=== PATIENT | female | born 1955 | race Native Hawaiian/Other Pacific Islander ===

== ENCOUNTER 2017-05-13 19:00 | Emergency (ER) | payer OTHER ==
[2017-05-13] MEDS ORDERED: TYLENOL PO ONE (19:20)
[2017-05-13] MEDS ORDERED: ASPIRIN PO ONE (19:34)
[2017-05-13] MEDS ORDERED: TYLENOL ONE (19:42)
[2017-05-13 19:52] LABS: Basophils # (Auto) 0.1 K/mm3 (0.0-0.1); Basophils % (Auto) 1.1 % (0.0-1.8); Eosinophils % (Auto) 0.9 % (0.0-4.3); Hematocrit 43.6 % (30.3-42.9); Hemoglobin 14.3 gm/dl (10.1-14.3); Lymphocytes # (Auto) 2.2 K/mm3 (1.2-5.4); Lymphocytes % (Auto) 41.8 % (13.4-35.0); Mean Corpuscular HGB Conc 33 % (30-34); Mean Corpuscular Hemoglobin 28 pg (28-32); Mean Corpuscular Volume 86 fl (79-97); Monocytes # (Auto) 0.7 K/mm3 (0.0-0.8); Platelet Count 246 K/mm3 (140-440); Red Blood Count 5.07 M/mm3 (3.65-5.03); Red Cell Distribution Width 14.8 % (13.2-15.2)
[2017-05-13 20:11] LABS: BUN/Creatinine Ratio 7; Blood Urea Nitrogen 5 mg/dL (7-17); Calcium 8.6 mg/dL (8.4-10.2); Hemolysis Index 31
--- NOTE | 2017-05-13 20:48 | XRay Report ---
FINAL REPORT PROCEDURE: XR CHEST ROUTINE 2V TECHNIQUE: PA and lateral chest radiographs were obtained. CPT 44217 HISTORY: COUGH COMPARISON: No prior studies are available for comparison. FINDINGS: Heart: Normal. Mediastinum/Vessels: Normal. Lungs/Pleural space: No infiltrate, effusion, or pneumothorax. Bony thorax: No acute osseous abnormality. Other: IMPRESSION: No pulmonary infiltrates are identified.
[2017-05-13] MEDS ORDERED: NACL 0.9% 1000 ML 1,000 ML IV ONE (22:51)
[2017-05-13] MEDS ORDERED: TORADOL IV ONE (22:51)
--- NOTE | 2017-05-13 23:44 | Emergency Department Report ---
ED Fever HPI - General Chief Complaint: Chest Pain Stated Complaint: CHEST PAIN Time Seen by Provider: 05/13/17 22:30 Source: patient Exam Limitations: language barrier - History of Present Illness Initial Comments: 61-year-old female Ghanaian speaking with a past smoking history hypertension and thyroid disease presents to Hospital with complaints of chest pain and fever. Complaint #1: Chest pain Patient has had right-sided chest pain and smelly for the past 2 weeks. It is described as a sticking pain radiates to her posterior thorax. No aggravating or alleviating factors reported. Patient states that she had some mild shortness of breath or dizziness with pain. No complaints of calf tenderness, recent travel, PE or DVT. Pain rated as 7/10 in intensity Complaint #2: Fever Patient's had a fever for the past 4 days with a nonproductive cough. She did not receive a flu shot. No sick contacts reported. Denies nausea, vomiting, or diarrhea. ED Review of Systems ROS: Stated complaint: CHEST PAIN Other details as noted in HPI Comment: All other systems reviewed and negative Other: Constitutional: As per HPI, decrease appetite Eyes: No eye pain visual changes or discharge ENT: No ear pain or throat pain Neck: Denies pain Respiratory: As per HPI Cardiovascular: Denies palpitations, syncope GI: Denies abdominal pain, nausea, vomiting, diarrhea : Denies dysuria, Musculoskeletal: Denies back pain, joint swelling Skin: Denies rash, lesions, erythema Neurologic: Denies headache, numbness, weakness Psychiatric: Denies suicidal ideation, hallucinations ED Past Medical Hx - Past Medical History Previous Medical History?: Yes Hx Hypertension: Yes Additional medical history: thyroid disease - Surgical History Past Surgical History?: Yes Additional Surgical History: hysterectomy - Social History Smoking Status: Never Smoker Substance Use Type: None - Medications Home Medications: Home Medications Medication Instructions Recorded Confirmed Last Taken Type Levothyroxine [Synthroid] 25 mcg PO DAILY@0600 #30 tablet 02/09/16 Unknown Rx Famotidine [Pepcid] 40 mg PO QHS #30 tablet 02/15/16 Unknown Rx Benzonatate [Tessalon Perles] 100 mg PO Q8HR PRN #30 capsule 05/14/17 Unknown Rx Ibuprofen [Motrin] 600 mg PO Q8H PRN #30 tablet 05/14/17 Unknown Rx Oseltamivir [Tamiflu] 75 mg PO BID #10 cap 05/14/17 Unknown Rx traMADol [Ultram 50 MG tab] 50 mg PO Q6HR PRN #20 tablet 05/14/17 Unknown Rx ED Physical Exam - General Limitations: No Limitations - Other Other exam information: General: No limitations, patient is alert in no acute distress Head exam: Atraumatic, normocephalic Eyes exam: Normal appearance ENT: Moist mucous membrane, normal oropharynx, no exudate Neck exam: Normal inspection, full range of motion, no meningismus nontender Respiratory exam: Clear to auscultation bilateral, no wheezes, rales, crackles Cardiovascular: Normal rate and rhythm, normal heart sounds Abdomen: Soft, nondistended, and nontender, with normal bowel sounds, no rebound, or guarding Extremity: Full range of motion normal inspection no deformity, no calf tenderness or edema Back: Normal Inspection, full range of motion, no tenderness Neurologic: Alert, oriented x3, cranial nerves intact, no motor or sensory deficit Psychiatric: normal affect, normal mood Skin: Warm, dry, intact ED Course Vital Signs 05/13/17 05/13/17 05/13/17 19:25 20:25 22:34 Temperature 102.1 F H Pulse Rate 106 H 70 Respiratory 18 18 10 L Rate Blood Pressure 136/95 Blood Pressure [Left] O2 Sat by Pulse 96 98 Oximetry 05/13/17 05/13/17 05/13/17 22:41 22:42 22:46 Temperature 98.1 F Pulse Rate 79 67 Respiratory 14 14 14 Rate Blood Pressure 107/66 Blood Pressure 109/60 [Left] O2 Sat by Pulse 97 97 98 Oximetry 05/13/17 05/13/17 05/13/17 23:16 23:30 23:46 Temperature Pulse Rate 70 67 61 Respiratory 14 11 L 9 L Rate Blood Pressure 107/66 127/51 110/52 Blood Pressure [Left] O2 Sat by Pulse 99 99 100 Oximetry ED Medical Decision Making - Lab Data Result diagrams: 05/13/17 19:39 05/13/17 19:39 Lab Results 05/13/17 05/13/17 05/13/17 Range/Units 19:39 19:39 22:50 WBC 5.3 (4.5-11.0) K/mm3 RBC 5.07 H (3.65-5.03) M/mm3 Hgb 14.3 (10.1-14.3) gm/dl Hct 43.6 H (30.3-42.9) % MCV 86 (79-97) fl MCH 28 (28-32) pg MCHC 33 (30-34) % RDW 14.8 (13.2-15.2) % Plt Count 246 (140-440) K/mm3 Lymph % (Auto) 41.8 H (13.4-35.0) % [place] % (Auto) 13.0 H (0.0-7.3) % Eos % (Auto) 0.9 (0.0-4.3) % Baso % (Auto) 1.1 (0.0-1.8) % Lymph # 2.2 (1.2-5.4) K/mm3 [place] # 0.7 (0.0-0.8) K/mm3 Eos # 0.0 (0.0-0.4) K/mm3 Baso # 0.1 (0.0-0.1) K/mm3 Seg Neutrophils % 43.2 (40.0-70.0) % Seg Neutrophils # 2.3 (1.8-7.7) K/mm3 D-Dimer (0-234) ng/mlDDU Sodium 138 (137-145) mmol/L Potassium 4.1 (3.6-5.0) mmol/L Chloride 98.4 (98-107) mmol/L Carbon Dioxide 24 (22-30) mmol/L Anion Gap 20 mmol/L BUN 5 L (7-17) mg/dL Creatinine 0.7 (0.7-1.2) mg/dL Estimated GFR > 60 ml/min BUN/Creatinine Ratio 7 % Glucose 137 H (65-100) mg/dL Calcium 8.6 (8.4-10.2) mg/dL Troponin T < 0.010 < 0.010 (0.00-0.029) ng/mL Urine Color (Yellow) Urine Turbidity (Clear) Urine pH (5.0-7.0) Ur Specific [place] (1.003-1.030) Urine Protein (Negative) mg/dL Urine Glucose (UA) (Negative) mg/dL Urine Ketones (Negative) mg/dL Urine Blood (Negative) Urine Nitrite (Negative) Urine Bilirubin (Negative) Urine Urobilinogen (<2.0) mg/dL Ur Leukocyte Esterase (Negative) Urine WBC (Auto) (0.0-6.0) /HPF Urine RBC (Auto) (0.0-6.0) /HPF U Epithel Cells (Auto) (0-13.0) /HPF Urine Bacteria (Auto) (Negative) /HPF Urine Mucus /HPF Influenza A (Rapid) (Negative) Influenza B (Rapid) (Negative) 05/13/17 05/13/17 05/13/17 Range/Units 22:53 Unknown Unknown WBC (4.5-11.0) K/mm3 RBC (3.65-5.03) M/mm3 Hgb (10.1-14.3) gm/dl Hct (30.3-42.9) % MCV (79-97) fl MCH (28-32) pg MCHC (30-34) % RDW (13.2-15.2) % Plt Count (140-440) K/mm3 Lymph % (Auto) (13.4-35.0) % [place] % (Auto) (0.0-7.3) % Eos % (Auto) (0.0-4.3) % Baso % (Auto) (0.0-1.8) % Lymph # (1.2-5.4) K/mm3 [place] # (0.0-0.8) K/mm3 Eos # (0.0-0.4) K/mm3 Baso # (0.0-0.1) K/mm3 Seg Neutrophils % (40.0-70.0) % Seg Neutrophils # (1.8-7.7) K/mm3 D-Dimer 244.93 H (0-234) ng/mlDDU Sodium (137-145) mmol/L Potassium (3.6-5.0) mmol/L Chloride (98-107) mmol/L Carbon Dioxide (22-30) mmol/L Anion Gap mmol/L BUN (7-17) mg/dL Creatinine (0.7-1.2) mg/dL Estimated GFR ml/min BUN/Creatinine Ratio % Glucose (65-100) mg/dL Calcium (8.4-10.2) mg/dL Troponin T (0.00-0.029) ng/mL Urine Color Yellow (Yellow) Urine Turbidity Clear (Clear) Urine pH 6.0 (5.0-7.0) Ur Specific [place] 1.008 (1.003-1.030) Urine Protein <15 mg/dl (Negative) mg/dL Urine Glucose (UA) Neg (Negative) mg/dL Urine Ketones Neg (Negative) mg/dL Urine Blood Sm (Negative) Urine Nitrite Neg (Negative) Urine Bilirubin Neg (Negative) Urine Urobilinogen < 2.0 (<2.0) mg/dL Ur Leukocyte Esterase Mod (Negative) Urine WBC (Auto) 5.0 (0.0-6.0) /HPF Urine RBC (Auto) 1.0 (0.0-6.0) /HPF U Epithel Cells (Auto) 2.0 (0-13.0) /HPF Urine Bacteria (Auto) 1+ (Negative) /HPF Urine Mucus Few /HPF Influenza A (Rapid) Negative (Negative) Influenza B (Rapid) Positive A (Negative) 05/14/17 Range/Units 01:19 WBC (4.5-11.0) K/mm3 RBC (3.65-5.03) M/mm3 Hgb (10.1-14.3) gm/dl Hct (30.3-42.9) % MCV (79-97) fl MCH (28-32) pg MCHC (30-34) % RDW (13.2-15.2) % Plt Count (140-440) K/mm3 Lymph % (Auto) (13.4-35.0) % [place] % (Auto) (0.0-7.3) % Eos % (Auto) (0.0-4.3) % Baso % (Auto) (0.0-1.8) % Lymph # (1.2-5.4) K/mm3 [place] # (0.0-0.8) K/mm3 Eos # (0.0-0.4) K/mm3 Baso # (0.0-0.1) K/mm3 Seg Neutrophils % (40.0-70.0) % Seg Neutrophils # (1.8-7.7) K/mm3 D-Dimer (0-234) ng/mlDDU Sodium (137-145) mmol/L Potassium (3.6-5.0) mmol/L Chloride (98-107) mmol/L Carbon Dioxide (22-30) mmol/L Anion Gap mmol/L BUN (7-17) mg/dL Creatinine (0.7-1.2) mg/dL Estimated GFR ml/min BUN/Creatinine Ratio % Glucose (65-100) mg/dL Calcium (8.4-10.2) mg/dL Troponin T < 0.010 (0.00-0.029) ng/mL Urine Color (Yellow) Urine Turbidity (Clear) Urine pH (5.0-7.0) Ur Specific [place] (1.003-1.030) Urine Protein (Negative) mg/dL Urine Glucose (UA) (Negative) mg/dL Urine Ketones (Negative) mg/dL Urine Blood (Negative) Urine Nitrite (Negative) Urine Bilirubin (Negative) Urine Urobilinogen (<2.0) mg/dL Ur Leukocyte Esterase (Negative) Urine WBC (Auto) (0.0-6.0) /HPF Urine RBC (Auto) (0.0-6.0) /HPF U Epithel Cells (Auto) (0-13.0) /HPF Urine Bacteria (Auto) (Negative) /HPF Urine Mucus /HPF Influenza A (Rapid) (Negative) Influenza B (Rapid) (Negative) - EKG Data -: EKG Interpreted by Ca EKG shows normal: sinus rhythm, axis (-68), QRS complexes (90), ST-T waves (no stemi/t inv) Rate: normal (92) - EKG Data 05/13/17 23:46 Repeat EKG does not reveal any acute changes. Decrease in heart rate likely secondary to fever reduction - Radiology Data Radiology results: report reviewed Chest x-ray: No pulmonary infiltrate CT angiogram chest: No pulmonary embolus. Mild bronchitis which may be acute or chronic. No acute infiltrates or effusion - Medical Decision Making Fever and cough Symptoms improved ED treatment Influenza be positive. Tamiflu will be offered Symptomatic treatment No infiltrate/pneumonia Right-sided chest pain for 2 weeks radiating to the back Mild d-dimer elevated CT angiogram negative for pulmonary embolus EKG normal sinus without ST elevation [place] and patient has 3 negative sets of cardiac enzymes Pain medicine will be provide for symptomatic treatment Patient be discharged with outpatient follow-up - Differential Diagnosis viral syndrome, influenza, atypical chest pain, PE, [place] Critical Care Time: No Critical care attestation.: If time is entered above; I have spent that time in minutes in the direct care of this critically ill patient, excluding procedure time. ED Disposition Clinical Impression: Influenza B, Right-sided chest pain Disposition: TO HOME OR SELFCARE Is pt being admited?: No Does the pt Need Aspirin: No Condition: Stable Instructions: Chest Pain (ED), Influenza (ED) Additional Instructions: Take the medication as prescribed. Follow-up with your doctor. Return if symptoms worsen as indicated by your discharge instructions. Prescriptions: Benzonatate [Tessalon Perles] 100 mg PO Q8HR PRN #30 capsule PRN Reason: Cough Ibuprofen [Motrin] 600 mg PO Q8H PRN #30 tablet PRN Reason: Pain Oseltamivir [Tamiflu] 75 mg PO BID #10 cap traMADol [Ultram 50 MG tab] 50 mg PO Q6HR PRN #20 tablet PRN Reason: Pain Referrals: SCOTT PARK MD [Primary Care Provider] - 3-5 Days Time of Disposition: 02:32 Print Language: SLOVAK
[2017-05-13] MEDS ORDERED: NACL ONE (23:49)
[2017-05-14 00:13] LABS: Bacteria,Urine 1+ /HPF (Negative); Bilirubin,Urine NEG (Negative); Blood,Urine SM (Negative); Color,Urine Yellow (Yellow); Mucus,Urine FEW /HPF; Nitrite,Urine NEG (Negative); Protein,Urine <15 mg/dL mg/dL (Negative); Urobilinogen,Urine < 2.0 mg/dL (<2.0)
--- NOTE | 2017-05-14 00:53 | Cat Scan Report ---
FINAL REPORT EXAM: CT ANGIO CHEST HISTORY: cp, cough, fever COMPARISON: Chest x-ray from May 13, 2017.. TECHNIQUE: Contiguous axial images were obtained. Additional sagittal and coronal reformatted images were obtained. Administration of IV contrast given per institution protocol. Images submitted for interpretation. 100 cc Omnipaque 350. Max intensity projection images. FINDINGS: Heart upper limits of normal in size. Thoracic aorta normal in caliber. No dissection. Ascending thoracic aorta measures 3.1 centimeters in diameter. Main pulmonary arteries measure up to 2.2 centimeters in diameter within normal limits. No pulmonary embolus. No pathologically enlarged intrathoracic or axillary lymph nodes. Mild bronchial wall thickening concerning for bronchitis which may be acute or chronic. Mild linear atelectasis or scarring at the lung bases. No large airspace consolidation or pleural effusion. Tracheobronchial tree is patent. Mild degenerative changes of the thoracic spine. Right thyroid lobe is larger in size compared to the left. No definable nodule by CT. Borderline enlargement of the visualized liver. IMPRESSION: No pulmonary embolus. Mild bronchitis which may be acute or chronic. No acute infiltrates or effusions.
[2017-05-14 03:32] VITALS: BP 107/66
== END 2017-05-14 03:32 | disposition home or self-care (01) ==
LOC: ED 19:00
DX: J10.1 Influenza due to other identified influenza virus with other respiratory manifestations (principal); R07.89 Other chest pain; I10 Essential (primary) hypertension; E07.9 Disorder of thyroid, unspecified; Z90.710 Acquired absence of both cervix and uterus
CPT/HCPCS: 36415; 71046; 71275; 80048; 81001; 84484; 85025; 85379; 87400; 93005; 93010; 96361; 96374; 99284; J1885; J7030; Q9967

== ENCOUNTER 2018-05-06 14:47 | Emergency (ER) | payer OTHER ==
--- NOTE | 2018-05-06 15:02 | Emergency Department Report ---
Blank Doc - Documentation Documentation: 62 y o female presents with tingling and numbness x thursday, went to MD was given prescription, symptoms unresolved went jenny to ED was sent here to be evaluated PMH of HTN,Thyroid and cholesterol. stable, no neuro deficit labs/ct head reevaluate
[2018-05-06 15:03] VITALS: BP 135/57
[2018-05-06 15:43] LABS: Hematocrit 40.3 % (30.3-42.9); Mean Corpuscular HGB Conc 32 % (30-34); Mean Corpuscular Volume 87 fl (79-97); Platelet Count 223 K/mm3 (140-440); Red Blood Count 4.62 M/mm3 (3.65-5.03); Red Cell Distribution Width 14.5 % (13.2-15.2)
[2018-05-06 15:53] LABS: Creatine Kinase MB 2.5 ng/mL (0.0-4.0)
[2018-05-06 15:54] LABS: BUN/Creatinine Ratio 19; Blood Urea Nitrogen 13 mg/dL (7-17); Hemolysis Index 12
[2018-05-06 16:13] LABS: INR 0.93 (0.87-1.13)
[2018-05-06 16:14] LABS: Partial Thromboplastin Time 29.2 Sec. (24.2-36.6); Thrombin Time 16.1 Sec. (15.1-19.6)
[2018-05-06 16:54] LABS: Basophils % (Manual) 0 % (0.0-1.8); Total Cells Counted 100
[2018-05-06 16:56] LABS: Ovalocytes Few
[2018-05-06] MEDS ORDERED: REGLAN IV ONE (16:57)
[2018-05-06] MEDS ORDERED: NACL 0.9% 1000 ML 1,000 ML IV ONE (16:57)
[2018-05-06] MEDS ORDERED: BENADRYL IV ONE (16:57)
[2018-05-06] MEDS ORDERED: K-DUR PO ONE (16:58)
--- NOTE | 2018-05-06 17:04 | Emergency Department Report ---
ED General Adult HPI - General Chief complaint: Neuro Symptoms/Deficit Stated complaint: NUMBNESS/TINGLING/FACE Time Seen by Provider: 05/06/18 14:57 Source: patient Mode of arrival: Ambulatory Limitations: Language Barrier (director of operations home health, Yakelin, used at bedside) - History of Present Illness Initial comments: 62-year-old female presents to the ED with headache, burning sensation to face, cramping pain/numbness/tingling all over her body 3 days. Patient denies fever, nausea, vomiting, abdominal pain. Patient states is given prescription for her headache medication by her PCP 3 days ago. Patient does not know the name of the medication, however she states it is not helping. -: days(s) (3) Location: head, face, chest, back, left, right, upper extremity, lower extremity Severity scale (0 -10): 9 Quality: burning, other (crampy) Consistency: constant Improves with: none Worsens with: none Associated Symptoms: headaches. denies: chest pain, cough, fever/chills, nausea/vomiting, shortness of breath Treatments Prior to Arrival: other ("headache medicine") - Related Data Home Medications Medication Instructions Recorded Confirmed Last Taken Levothyroxine [Synthroid] 88 mcg PO DAILY 05/06/18 05/06/18 Unknown Lisinopril/Hydrochlorothiazide 1 each PO DAILY 05/06/18 05/06/18 Unknown [Zestoretic 20-12.5 mg] Rosuvastatin Calcium [Crestor] 40 mg PO DAILY 05/06/18 05/06/18 Unknown Previous Rx's Medication Instructions Recorded Last Taken Type Butalb/Acetamin/Caff 50-325-40 1 tab PO Q6HR PRN #10 tab 05/06/18 Unknown Rx [Fioricet] Allergies Allergy/AdvReac Type Severity Reaction Status Date / Time No Known Allergies Allergy Unverified 02/08/16 22:59 ED Review of Systems ROS: Stated complaint: NUMBNESS/TINGLING/FACE Other details as noted in HPI Comment: All other systems reviewed and negative Constitutional: denies: chills, fever Respiratory: denies: cough, shortness of breath Cardiovascular: denies: chest pain Gastrointestinal: denies: abdominal pain, nausea, vomiting Musculoskeletal: myalgia Neurological: headache, paresthesias ED Past Medical Hx - Past Medical History Hx Hypertension: Yes Additional medical history: thyroid disease - Surgical History Additional Surgical History: hysterectomy - Social History Smoking Status: Never Smoker Substance Use Type: None - Medications Home Medications: Home Medications Medication Instructions Recorded Confirmed Last Taken Type Butalb/Acetamin/Caff 50-325-40 1 tab PO Q6HR PRN #10 tab 05/06/18 Unknown Rx [Fioricet] Levothyroxine [Synthroid] 88 mcg PO DAILY 05/06/18 05/06/18 Unknown History Lisinopril/Hydrochlorothiazide 1 each PO DAILY 05/06/18 05/06/18 Unknown History [Zestoretic 20-12.5 mg] Rosuvastatin Calcium [Crestor] 40 mg PO DAILY 05/06/18 05/06/18 Unknown History ED Physical Exam - General Limitations: Language Barrier General appearance: alert, in no apparent distress - Head Head exam: Present: atraumatic, normocephalic - Eye Eye exam: Present: normal appearance - ENT ENT exam: Present: mucous membranes moist - Neck Neck exam: Present: normal inspection - Respiratory Respiratory exam: Present: normal lung sounds bilaterally. Absent: respiratory distress - Cardiovascular Cardiovascular Exam: Present: regular rate, normal rhythm - GI/Abdominal GI/Abdominal exam: Present: soft. Absent: distended, tenderness - Extremities Exam Extremities exam: Present: normal inspection - Neurological Exam Neurological exam: Present: alert, oriented X3, CN II-XII intact. Absent: motor sensory deficit - Psychiatric Psychiatric exam: Present: normal affect, normal mood - Skin Skin exam: Present: warm, dry, intact, normal color ED Course Vital Signs 05/06/18 05/06/18 14:57 16:55 Temperature 97.6 F Pulse Rate 69 Respiratory 20 18 Rate Blood Pressure 135/57 O2 Sat by Pulse 100 98 Oximetry ED Medical Decision Making - Lab Data Result diagrams: 05/06/18 15:18 05/06/18 15:18 - Radiology Data Radiology results: report reviewed, image reviewed - Medical Decision Making 70-year-old female reported headache, diffuse paresthesias and cramping to body. Workup unremarkable except for hypokalemia with potassium of 3.2. May be the cause of patient's symptoms. IV fluids, by mouth potassium, Reglan and Benadryl for her headache. Following treatment, the patient feeling much improved. Prescription given for Fioricet. Advised outpatient follow-up with PCP. Return precautions given. Critical care attestation.: If time is entered above; I have spent that time in minutes in the direct care of this critically ill patient, excluding procedure time. ED Disposition Clinical Impression: Hypokalemia, Acute headache, Paresthesia Disposition: TO HOME OR SELFCARE Is pt being admited?: No Condition: Stable Instructions: Hypokalemia (ED) Prescriptions: Butalb/Acetamin/Caff 50-325-40 [Fioricet] 1 tab PO Q6HR PRN #10 tab PRN Reason: Headache Referrals: PRIMARY CARE, [Primary Care Provider] - 3-5 Days Time of Disposition: 18:24
--- NOTE | 2018-05-06 17:41 | Cat Scan Report ---
FINAL REPORT EXAM: CT HEAD/BRAIN WO CON HISTORY: Stroke symptoms TECHNIQUE: Axial helical imaging from the skullbase to the vertex. Comparison: None FINDINGS: There is no evidence of an acute intracranial process, intracranial hemorrhage or mass effect. The ventricles are normal size. There is atherosclerotic vascular calcification of the internal carotid arteries bilaterally at the s kullbase. The visualized portions of the orbits, paranasal and mastoid sinuses are unremarkable. The bony structures are unremarkable. IMPRESSION: 1. The no evidence of an acute intracranial process, intracranial hemorrhage or mass effect. If there is a clinical suspicion of acute cerebral ischemia, MRI brain would be helpful for further e valuation.
[2018-05-06 18:11] LABS: Bilirubin,Urine NEG (Negative); Blood,Urine NEG (Negative); Color,Urine Colorless (Yellow); Protein,Urine <15 mg/dL mg/dL (Negative); Urobilinogen,Urine < 2.0 mg/dL (<2.0)
== END 2018-05-06 19:00 | disposition home or self-care (01) ==
LOC: ED 14:47
DX: E87.6 Hypokalemia (principal); R51 Headache; R20.2 Paresthesia of skin; I10 Essential (primary) hypertension
CPT/HCPCS: 36415; 70450; 80048; 81001; 82550; 82553; 82962; 84484; 85007; 85025; 85610; 85670; 85730; 93005; 93010; 96361; 96374; 96375; 99285; J1200; J2765; J7030

== ENCOUNTER 2021-02-20 14:43 | Emergency (ER) | payer OTHER ==
[2021-02-20 14:49] VITALS: BP 136/60
--- NOTE | 2021-02-20 16:36 | Emergency Department Report ---
ED Shortness of Breath HPI - General Chief Complaint: Dyspnea/Respdistress Stated Complaint: SOB Time Seen by Provider: 02/20/21 16:29 Source: patient Mode of arrival: Ambulatory Limitations: No Limitations - History of Present Illness Initial Comments: This pleasant 65-year-old Persian-speaking female presents the emergency department with a chief complaint of cough, congestion, shortness of breath and pain in her chest when she takes deep breath over the past 2 weeks. She has past medical history of hypothyroidism, hypertension hyperlipidemia. She reports some associated fatigue, body aches and chills. She reports she felt similarly when she was seen in the hospital last time and diagnosed with Covid pneumonia. She denies any sick contacts. She denies any associated nausea, vomiting, diarrhea, abdominal pain, back pain, focal weakness or any other associated symptoms. She does report she has been compliant with her medication regiment. - Related Data Home Medications Medication Instructions Recorded Confirmed Last Taken Levothyroxine [Synthroid] 88 mcg PO DAILY 05/06/18 12/07/18 12/06/18 Lisinopril/Hydrochlorothiazide 1 each PO DAILY 05/06/18 12/07/18 12/06/18 [Zestoretic 20-12.5 mg] Rosuvastatin Calcium [Crestor] 40 mg PO DAILY 05/06/18 12/07/18 12/06/18 Previous Rx's Medication Instructions Recorded Last Taken Type Aspirin [Adult Aspirin] 81 mg PO DAILY #30 tablet. 12/08/18 Unknown Rx Butalb/Acetamin/Caff 50-325-40 1 tab PO Q6HR PRN #10 tab 12/08/18 Unknown Rx [Fioricet 50-325-40] Azithromycin [Zithromax TAB] 250 mg PO QDAY #3 tablet 06/22/19 Unknown Rx Loratadine/Pseudoephedrine 1 tab PO DAILY #5 tablet 06/22/19 Unknown Rx [Claritin-D 24Hr] Albuterol Sulfate [Proventil Hfa] 6.7 gm IH Q4HR PRN #1 hfa.aer.ad 02/20/21 Unknown Rx Azithromycin [Zithromax Z-MARIO] 0 mg PO DAILY #1 pack 02/20/21 Unknown Rx Prednisone [predniSONE 10 mg 10 mg PO .TAPER #1 tab.ds.pk 02/20/21 Unknown Rx (6-Day Pack, 21 Tabs)] Allergies Allergy/AdvReac Type Severity Reaction Status Date / Time No Known Allergies Allergy Unverified 02/08/16 22:59 ED Review of Systems ROS: Stated complaint: SOB Other details as noted in HPI Comment: All other systems reviewed and negative Constitutional: denies: chills, fever Eyes: denies: eye pain, eye discharge, vision change ENT: denies: ear pain, throat pain Respiratory: see HPI, cough, shortness of breath. denies: wheezing Cardiovascular: as per HPI, chest pain. denies: palpitations Endocrine: no symptoms reported Gastrointestinal: denies: abdominal pain, nausea, diarrhea Genitourinary: denies: urgency, dysuria, discharge Musculoskeletal: as per HPI, myalgia. denies: back pain, joint swelling, arthralgia Skin: denies: rash, lesions Neurological: denies: headache, weakness, paresthesias Psychiatric: denies: anxiety, depression Hematological/Lymphatic: denies: easy bleeding, easy bruising ED Past Medical Hx - Past Medical History Previous Medical History?: Yes Hx Hypertension: Yes Additional medical history: thyroid disease. HIGH CHOLESTEROL. LOW POTASSIUM - Surgical History Past Surgical History?: Yes Additional Surgical History: hysterectomy - Social History Smoking Status: Never Smoker - Medications Home Medications: Home Medications Medication Instructions Recorded Confirmed Last Taken Type Levothyroxine [Synthroid] 88 mcg PO DAILY 05/06/18 12/07/18 12/06/18 History Lisinopril/Hydrochlorothiazide 1 each PO DAILY 05/06/18 12/07/18 12/06/18 History [Zestoretic 20-12.5 mg] Rosuvastatin Calcium [Crestor] 40 mg PO DAILY 05/06/18 12/07/18 12/06/18 History Aspirin [Adult Aspirin] 81 mg PO DAILY #30 tablet. 12/08/18 Unknown Rx Butalb/Acetamin/Caff 50-325-40 1 tab PO Q6HR PRN #10 tab 12/08/18 Unknown Rx [Fioricet 50-325-40] Azithromycin [Zithromax TAB] 250 mg PO QDAY #3 tablet 06/22/19 Unknown Rx Loratadine/Pseudoephedrine 1 tab PO DAILY #5 tablet 06/22/19 Unknown Rx [Claritin-D 24Hr] Albuterol Sulfate [Proventil Hfa] 6.7 gm IH Q4HR PRN #1 hfa.aer.ad 02/20/21 Unknown Rx Azithromycin [Zithromax Z-MARIO] 0 mg PO DAILY #1 pack 02/20/21 Unknown Rx Prednisone [predniSONE 10 mg 10 mg PO .TAPER #1 tab.ds.pk 02/20/21 Unknown Rx (6-Day Pack, 21 Tabs)] ED Physical Exam - General Limitations: No Limitations General appearance: alert, in no apparent distress - Head Head exam: Present: atraumatic, normocephalic - Eye Eye exam: Present: normal appearance, PERRL, EOMI Pupils: Present: normal accommodation - ENT ENT exam: Present: normal exam, normal orophraynx, mucous membranes moist - Neck Neck exam: Present: normal inspection, full ROM. Absent: tenderness, meningismus - Respiratory Respiratory exam: Present: wheezes (Mild expiratory wheeze bilaterally, no increased work of breathing), chest wall tenderness (Tenderness across the midline of the chest). Absent: normal lung sounds bilaterally, respiratory distress, rales, rhonchi, stridor - Cardiovascular Cardiovascular Exam: Present: regular rate, normal rhythm, normal heart sounds. Absent: systolic murmur, diastolic murmur, rubs, gallop - GI/Abdominal GI/Abdominal exam: Present: soft, normal bowel sounds. Absent: distended, tenderness, guarding, rebound, rigid - Extremities Exam Extremities exam: Present: normal inspection, full ROM, normal capillary refill. Absent: tenderness, calf tenderness (No posterior calf tenderness, negative Homans' sign bilaterally.) - Back Exam Back exam: Present: normal inspection, full ROM. Absent: tenderness, CVA tenderness (R), CVA tenderness (L) - Neurological Exam Neurological exam: Present: alert, oriented X3, CN II-XII intact, normal gait - Psychiatric Psychiatric exam: Present: normal affect, normal mood - Skin Skin exam: Present: warm, dry, intact, normal color. Absent: rash ED Course Vital Signs 02/20/21 14:48 Temperature 98.1 F Pulse Rate 78 Respiratory 17 Rate Blood Pressure 136/60 [Left] O2 Sat by Pulse 97 Oximetry ED Medical Decision Making - Lab Data Result diagrams: 02/20/21 16:55 02/20/21 16:55 Lab Results 12/04/1202/20/21 02/20/21 Range/Units 16:55 16:55 16:55 WBC 7.6 (4.5-11.0) K/mm3 RBC 4.88 (3.65-5.03) M/mm3 Hgb 13.4 (10.1-14.3) gm/dl Hct 41.2 (30.3-42.9) % MCV 84 (79-97) fl MCH 28 (28-32) pg MCHC 33 (30-34) % RDW 14.2 (13.2-15.2) % Plt Count 255 (140-440) K/mm3 Lymph % (Auto) 39.8 H (13.4-35.0) % [place] % (Auto) 8.4 H (0.0-7.3) % Eos % (Auto) 0.7 (0.0-4.3) % Baso % (Auto) 1.1 (0.0-1.8) % Lymph # (Auto) 3.0 (1.2-5.4) K/mm3 [place] # (Auto) 0.6 (0.0-0.8) K/mm3 Eos # (Auto) 0.1 (0.0-0.4) K/mm3 Baso # (Auto) 0.1 (0.0-0.1) K/mm3 Seg Neutrophils % 50.0 (40.0-70.0) % Seg Neutrophils # 3.8 (1.8-7.7) K/mm3 PT 13.6 (12.2-14.9) Sec. INR 0.94 (0.87-1.13) APTT 33.2 (24.2-36.6) Sec. D-Dimer 175.44 (0-234) ng/mlDDU Sodium 138 (137-145) mmol/L Potassium 4.5 (3.6-5.0) mmol/L Chloride 103.5 (98-107) mmol/L Carbon Dioxide 24 (22-30) mmol/L Anion Gap 15 mmol/L BUN 14 (7-17) mg/dL Creatinine 0.8 (0.6-1.2) mg/dL Estimated GFR > 60 ml/min BUN/Creatinine Ratio 18 % Glucose 119 H (65-100) mg/dL Calcium 9.4 (8.4-10.2) mg/dL Total Bilirubin 0.40 (0.1-1.2) mg/dL AST 39 (5-40) units/L ALT 28 (7-56) units/L Alkaline Phosphatase 76 (35-129) units/L Troponin T < 0.010 (0.00-0.029) ng/mL Total Protein 8.4 H (6.3-8.2) g/dL Albumin 4.5 (3.9-5) g/dL Albumin/Globulin Ratio 1.2 % 02/20/21 Range/Units 20:11 WBC (4.5-11.0) K/mm3 RBC (3.65-5.03) M/mm3 Hgb (10.1-14.3) gm/dl Hct (30.3-42.9) % MCV (79-97) fl MCH (28-32) pg MCHC (30-34) % RDW (13.2-15.2) % Plt Count (140-440) K/mm3 Lymph % (Auto) (13.4-35.0) % [place] % (Auto) (0.0-7.3) % Eos % (Auto) (0.0-4.3) % Baso % (Auto) (0.0-1.8) % Lymph # (Auto) (1.2-5.4) K/mm3 [place] # (Auto) (0.0-0.8) K/mm3 Eos # (Auto) (0.0-0.4) K/mm3 Baso # (Auto) (0.0-0.1) K/mm3 Seg Neutrophils % (40.0-70.0) % Seg Neutrophils # (1.8-7.7) K/mm3 PT (12.2-14.9) Sec. INR (0.87-1.13) APTT (24.2-36.6) Sec. D-Dimer (0-234) ng/mlDDU Sodium (137-145) mmol/L Potassium (3.6-5.0) mmol/L Chloride (98-107) mmol/L Carbon Dioxide (22-30) mmol/L Anion Gap mmol/L BUN (7-17) mg/dL Creatinine (0.6-1.2) mg/dL Estimated GFR ml/min BUN/Creatinine Ratio % Glucose (65-100) mg/dL Calcium (8.4-10.2) mg/dL Total Bilirubin (0.1-1.2) mg/dL AST (5-40) units/L ALT (7-56) units/L Alkaline Phosphatase (35-129) units/L Troponin T < 0.010 (0.00-0.029) ng/mL Total Protein (6.3-8.2) g/dL Albumin (3.9-5) g/dL Albumin/Globulin Ratio % - EKG Data EKG shows normal: sinus rhythm Rate: normal - EKG Data When compared to previous EKG there are: no significant change (compared to 05/11/18) Interpretation: normal EKG (Normal sinus rhythm with a ventricular rate of 73 bpm, left axis deviation, no acute ST or T wave normalities, no STEMI, normal intervals), unchanged when compared t - Radiology Data Radiology results: report reviewed : 1955 Acct:[id number] Age/Sex: 65 / F ADM Date: 02/20/21 Loc: ED Attending Dr: Ordering Physician: JULIO ELLER Date of Service: 02/20/21 Procedure(s): XR chest routine 2V Accession Number(s): [id number] cc: JULIO ELLER Fluoro Time In Minutes: CHEST 2 VIEWS INDICATION / CLINICAL INFORMATION: Chest Pain. COMPARISON: 06/19/2019 FINDINGS: SUPPORT DEVICES: None. HEART / MEDIASTINUM: No significant abnormality. LUNGS / PLEURA: No significant pulmonary or pleural abnormality. No pneumotho rax. ADDITIONAL FINDINGS: No significant additional findings. IMPRESSION: 1. No acute findings. Signer Name: Ronny Gilliam MD Signed: 02/20/2021 5:04 PM Workstation Name: [id number] Transcribed By: SB Dictated By: RONNY GILLIAM MD Electronically Authenticated By: RONNY GILLIAM MD Signed Date/Time: 02/20/21 [id number] - Medical Decision Making Patient nontoxic no acute distress. Vital signs stable. The patient has a low risk by heart score criteria and has a normal EKG with unchanged from prior EKGs with 2 - troponins making atypical ACS unlikely. She has been coughing and has repeatable chest wall pain. She is low risk by Wells criteria and D-dimer was negative making PE unlikely. Chest x-ray is unremarkable no pneumonia. That here slight expiratory wheezing and the patient felt much better after receiving breathing treatment in the emergency department. We will send her home with steroids, inhaler and short course antibiotics and recommend outpatient follow- up with primary care doctor. Recommend she return the emerge department change worsening symptoms. She verbalized understand the diagnosis, treatment and follow-up instructions. Spoke with her son on the phone will also help interpret and he was agreeable to plan. - Differential Diagnosis Pulmonary embolism, atypical ACS, bronchitis, pneumonia, COVID-19 Critical care attestation.: If time is entered above; I have spent that time in minutes in the direct care of this critically ill patient, excluding procedure time. ED Disposition Clinical Impression: Acute bronchitis Qualifiers: Bronchitis organism: unspecified organism Qualified Code(s): J20.9 - Acute bronchitis, unspecified Disposition: HOME / SELF CARE / HOMELESS Is pt being admited?: No Condition: Stable Instructions: Acute Bronchitis (ED), Acute Bronchitis, Adult, [id number] Prescriptions: Prednisone [predniSONE 10 mg (6-Day Pack, 21 Tabs)] 10 mg PO .TAPER #1 tab.ds.pk Albuterol Sulfate [Proventil Hfa] 6.7 gm IH Q4HR PRN #1 hfa.aer.ad PRN Reason: Wheezing Azithromycin [Zithromax Z-MARIO] 0 mg PO DAILY #1 pack Referrals: PRIMARY MD GUERO [Primary Care Provider] - 3-5 Days JEAN MEZA MD [Staff Physician] - 3-[address] [facility] [Provider Group] - 3-5 Days Forms: Work/School Release Form(ED) Time of Disposition: 21:00
--- NOTE | 2021-02-20 17:09 | XRay Report ---
CHEST 2 VIEWS INDICATION / CLINICAL INFORMATION: Chest Pain. COMPARISON: 06/19/2019 FINDINGS: SUPPORT DEVICES: None. HEART / MEDIASTINUM: No significant abnormality. LUNGS / PLEURA: No significant pulmonary or pleural abnormality. No pneumothorax. ADDITIONAL FINDINGS: No significant additional findings. IMPRESSION: 1. No acute findings. Signer Name: Ronny Sanon MD Signed: 02/20/2021 5:04 PM Workstation Name: [email or web address]
[2021-02-20 17:30] LABS: Basophils # (Auto) 0.1 K/mm3 (0.0-0.1); Basophils % (Auto) 1.1 % (0.0-1.8); Eosinophils # (Auto) 0.1 K/mm3 (0.0-0.4); Eosinophils % (Auto) 0.7 % (0.0-4.3); Hematocrit 41.2 % (30.3-42.9); Hemoglobin 13.4 gm/dl (10.1-14.3); Lymphocytes % (Auto) 39.8 % (13.4-35.0); Mean Corpuscular HGB Conc 33 % (30-34); Mean Corpuscular Volume 84 fl (79-97); Monocytes # (Auto) 0.6 K/mm3 (0.0-0.8); Monocytes % (Auto) 8.4 % (0.0-7.3); Platelet Count 255 K/mm3 (140-440); Red Blood Count 4.88 M/mm3 (3.65-5.03); Red Cell Distribution Width 14.2 % (13.2-15.2)
[2021-02-20 17:36] LABS: INR 0.94 (0.87-1.13)
[2021-02-20 17:37] LABS: Partial Thromboplastin Time 33.2 Sec. (24.2-36.6)
[2021-02-20 18:05] LABS: Alanine Aminotransferase 28 units/L (7-56); Albumin 4.5 g/dL (3.9-5); BUN/Creatinine Ratio 18; Blood Urea Nitrogen 14 mg/dL (7-17); Calcium 9.4 mg/dL (8.4-10.2); Hemolysis Index 21
[2021-02-20] MEDS ORDERED: ALBUTEROL 2.5 MG/3 ML NEBU IH ONE (18:08)
--- NOTE | 2021-02-22 12:05 | Electrocardiograph Report ---
[facility] Test Date: 2021-02-20 Test Time: 17:01:28 Pat Name: ARCHIE CID Department: Room: Gender: F [employer] Inspector: BRY : 1955 Requested By: LARRY ZURITA Order Number: [id number] Reading MD: El Bustos Measurements Intervals [place] Rate: 73 P: 62 NE: 140 QRS: -41 QRSD: 97 T: 46 QT: 444 QTc: 490 Interpretive Statements Sinus rhythm Left axis deviation Anteroseptal infarct, age indeterminate No previous ECG available for comparison Electronically Signed On 02-22-2021 12:05:25 EST by El Bustos
== END 2021-02-20 21:24 | disposition home or self-care (01) ==
LOC: ED 14:43
DX: J20.9 Acute bronchitis, unspecified (principal); Z90.710 Acquired absence of both cervix and uterus; I10 Essential (primary) hypertension
CPT/HCPCS: 36415; 71046; 80053; 84484; 85025; 85379; 85610; 85730; 93005; 94640; 94644; 99284